=== PATIENT | female | born 1985 | race Caucasian/White ===

== ENCOUNTER 2018-04-27 21:05 | Inpatient (IN) | END 2018-04-29 15:30 | disposition home or self-care (01) | DRG 833 ==

== ENCOUNTER 2018-09-10 03:29 | Inpatient (IN) | payer MEDICAID ==
[~2018-09-10] VITALS: Ht 149.9 cm; Wt 87.3 kg
[~2018-09-10 03:29] MED LIST: NITR-58 PO; PREN1TAB13 PO
[2018-09-10 03:39] VITALS: BP 115/75; PULSE 83; RESP 16
[2018-09-10] MEDS ORDERED: FERR134T PO (04:16)
[2018-09-10] MEDS ORDERED: LACTATED RINGER'S 1,000 ML IV PRN (04:16)
[2018-09-10] MEDS ORDERED: LACTATED RINGER'S 1,000 ML IV SCH (04:16)
--- NOTE | 2018-09-10 04:22 | TRIAGE ---
OB Triage Datetime Report Generated by CPN: 09/10/2018 04:22 Datetime: 09/10/2018 04:10 Stage of : OB Triage Datetime: 09/10/2018 04:05 Stage of : OB Triage Labor Evaluation Frequency: 1.5-3 Monitor Mode: External Duration (sec)2399: 60-90 Quality: Moderate Pattern: Normal: <= 5 Contractions in 10 Minutes Resting Tone [place]: Relaxed Heart Rate FHR Baseline Rate: 140 Monitor Mode: External US FHR Baseline Changes: No Baseline Change Variability: Moderate 6-25 bpm Accelerations: 15X15 Decelerations: None Category: Category I Vaginal Exam Dilatation (cms): 5.0 Effacement (%): 80 Station: -2 Exam By: Jeannie Polanco Membrane Status: Bulging Vaginal Bleeding: Scant Cervix, Consistency: Soft Cervix, Position: Midposition Presentation 'A': Cephalic Datetime: 09/10/2018 03:55 Time of Arrival: 09/10/2018 03:25 EGA: 39.4 Arrived By: Wheelchair Arrived From: Home Chief Complaint: L3 c/o mild ireg ucs Movement: Present Contractions: Irregular Time Contractions Began: 09/10/2018 01:00 Contractions: q20 Rupture of Membranes: Denies Vaginal Bleeding: None Vaginal Discharge: Present Recent Sexual Intercouse: Denies Abdominal Trauma: Not Applicable Patient Complaints: Cramping Time Provider Notified: 09/10/2018 04:10 Provider Notified: Dr Vanegas Initial Plan: EFM,SVE Datetime: 09/10/2018 03:43 Stage of : OB Triage Maternal Assessment Level of Consciousness: Fully Conscious Headache: Denies Blurred Vision: No Nausea/Vomiting: Denies RUQ Epigastric Pain: Denies Facial Edema: None Monitor Mode: External Resting Tone [place]: Relaxed Heart Rate FHR Baseline Rate: 140 Monitor Mode: External US Pain Assessment Pain Scale: 3 Pain Presence: Intermittent Pain Type: Cramping Pain Location: Abdomen
[2018-09-10] MEDS ORDERED: IBUPROFEN 600 MG TAB PO PRN (04:30)
[2018-09-10] MEDS ORDERED: CARBOPROST 250 MCG INJ IM PRN ×2 (04:30→06:00)
[2018-09-10] MEDS ORDERED: OXYTOCIN 30 UNITS/LR 500 ML IV PRN ×2 (04:30→06:00)
[2018-09-10] MEDS ORDERED: METHYLERGONOVINE 0.2 MG INJ IM PRN ×2 (04:30→06:00)
[2018-09-10] MEDS ORDERED: MINERAL OIL LIGHT 10 ML VIAL TOP ONE (04:30)
[2018-09-10] MEDS ORDERED: OXYTOCIN 30 UNITS/LR 500 ML IV SCH ×3 (04:30→05:50)
[2018-09-10] MEDS ORDERED: MISOPROSTOL 200 MCG TAB PR PRN ×2 (04:30→06:00)
[2018-09-10] MEDS ORDERED: LIDOCAINE 1% (MPF) 30 ML INJ INJ PRN (04:30)
[2018-09-10] MEDS ORDERED: BUTORPHANOL 2 MG INJ IV PRN ×2 (04:30)
--- NOTE | 2018-09-10 05:45 | LDN ---
Date/Time of Note Date/Time of Note DATE: 09/10/18 TIME: 05:44 Delivery Summary of a viable baby girl weighing 3165 grams, or 7#, 18" long, and with Apgars of 9/9. Weeks of Gestation 39w 4d Placenta Delivered: Spontaneously Meconium: none Episiotomy: No Perineal laceration: 0 Anesthesia type: None Estimated blood loss: 100 Sponge & Needle done & correct: Yes All needle counts correct: Yes Any foreign bodies felt in the: No (vagina) Delivery Information Sex Infant Sex: female Apgars 1 Minute: 9 5 Minute: 9 Suctioning Nose & mouth suctioned at som: Yes Delee suction performed: No Umbilical Cord Umbilical cord with: 3 Vessels Cord presentations: no nuchal cord Cord Blood was obtained: Yes Mother & Baby Disposition Disposition Mom & Baby to Maternity; Good: Yes Baby to NICU: No ROBERTO FARMER MD September 10, 2018 05:45
[2018-09-10] MEDS: LACTATED RINGER'S 1,000 ML IV* SCH ×2 (05:50→13:50)
--- NOTE | 2018-09-10 05:50 | HP ---
Date/Time of Note Date/Time of Note DATE: 09/10/18 TIME: 05:45 OB - History Hx of Present Free Text/Dictation 33 y.o. A1 with an IUP at 39w 4d came in active labor at 80%/5 cm/- 2/intact/VTX. Estimated Due Date: September 13, 2018 : 6 Para: 4 Spontaneous : 1 Obstetrical Complications: None Medical Complications: None Other Concerns: PMHx: none. PSHx: none except a D and C. NKDA. Past Family/Social History * Past Medical, Surgical, Family and Obstetric Histories reviewed from chart. Blood Type: O+ Rubella: immune RPR/VDRL: Negative GBS Status: Negative HBsAG: Negative OB Admission Exam Vital Signs Vital Signs Vital Signs Date Temp Pulse Resp B/P (MAP) Pulse Ox O2 O2 Flow FiO2 Time Delivery Rate 09/10/18 98.5 83 16 115/75 Room Air 03:39 (88) Physical Exam HEENT: WNL Heart: Rhythm Normal Lungs: Clear Abdomen: WNL Extremities: Normal Reflexes: Normal Cervical Dilatation: 5cm Effacement: Other (80%) Station: -2 Membranes: Intact Heart Rate: 140's Accelerations: Accelerations Present Decelerations: No Decelerations Varibility: Moderate Contractions on Admission: < 5 Minutes Apart Intensity: Moderate Last 72 hours Lab Results CBC & BMP 09/10/18 04:40 OB Assessment/Plan Reason for admission: active labor Plan: Expectant Management ROBERTO FARMER MD September 10, 2018 05:50
[2018-09-10] MEDS ORDERED: LANOLIN HPA 1 PKT TOP PRN (06:00)
[2018-09-10] MEDS: IBUPROFEN 600 MG TAB PO SCH ×4 (06:23→23:21)
[2018-09-10 07:42] VITALS: BP 115/60; PULSE 70; RESP 18
[2018-09-10 09:00] VITALS: BP 108/61; PULSE 84; RESP 17
[2018-09-10 12:00] VITALS: BP 109/57; PULSE 71; RESP 18
[2018-09-10 15:50] VITALS: BP 103/52; PULSE 85; RESP 18
[2018-09-10] MEDS: HYDROCODONE/APAP (5/325) TAB PO PRN (16:46)
[2018-09-10 20:00] VITALS: BP 93/51; PULSE 74; RESP 19
[2018-09-11] VITALS (22 sets, daily range): BP systolic 93–141; BP diastolic 60–76; PULSE 68–84; RESP 14–76
[2018-09-11] MEDS: IBUPROFEN 600 MG TAB PO SCH ×4 (05:46→23:44)
[2018-09-11] MEDS ORDERED: DEXTROSE 5%-LR 1,000 ML IV SCH (13:00)
--- NOTE | 2018-09-11 14:15 | PN ---
Date/Time of Note Date/Time of Note DATE: 09/11/18 TIME: 14:13 OB Subjective Subjective Subjective PPD# 1 Patient is doing well. She denies nausea, vomiting, shortness of breath, chest pain, headache. She has been ambulating without difficulty, tolerating regular diet. Pain is well controlled on current medications OB Objective Objective Objective VS - Last 72 Hours, by Label Date Temp Pulse Resp B/P (MAP) Pulse Ox O2 O2 Flow FiO2 Time Delivery Rate 09/11/18 98.5 76 76 102/65 Room Air 09:00 (77) 09/11/18 98.1 80 19 93/60 (71) Room Air 03:15 09/10/18 98.1 74 19 93/51 (65) Room Air 20:00 09/10/18 98.6 85 18 103/52 Room Air 15:50 (69) 09/10/18 98.6 71 18 109/57 Room Air 12:00 (74) 09/10/18 98.3 84 17 108/61 Room Air 09:00 (77) 09/10/18 98.4 70 18 115/60 Room Air 07:42 (78) 09/10/18 98.5 83 16 115/75 Room Air 03:39 (88) General: AAO X 3, comfortable, NAD, appropriate mood and affect. ABD: +BS. Soft, non-tender. Uterus 2 cm below umbilicus Flank: No CVA tenderness (B/L) LE: Mild edema. No clubbing, cyanosis, thigh or calf tenderness (B/L). [place] 'sign is negative OB Assessment/Plan Other plan: 33 years old -0-1-5 s/p normal vaginal delivery at 39 weeks and 4 days. PPD#1 - AF, VSS - Baby is doing well, at bed side. She is bonding well - Continue care - Contraception methods with R/B/A/FR discussed. She would like to have permanent surgical sterilization. She signed consent form during . Contact operating room for availability RUSTY TRINIDAD September 11, 2018 14:15
[2018-09-11] MEDS ORDERED: MIDAZOLAM 1 MG/ML 2 ML INJ ONE ×2 (20:01→20:40)
[2018-09-11] MEDS ORDERED: ONDANSETRON 4 MG INJ ONE (20:01)
[2018-09-11] MEDS ORDERED: FENTAnyl 50 MCG/ML VIAL ONE (20:01)
--- NOTE | 2018-09-11 20:13 | QN ---
Documentation Comment 33 years old -0-1-5 s/p normal vaginal delivery at 39 weeks and 4 days. PPD#1. She is desiring for permanent surgical sterilization. She signed consent form during . Other contraceptive options including but not limited to IUD discussed in detail with patient. She expressed understanding and still would like to have permanent surgical sterilization. The risk including but not limited to bleeding, infection, injury to other organs (b owel, bladder, ureter, vessels, nerves), blood transfusion, blood transfusion related infection, risk of anesthesia, adhesion, permanent surgical sterilization, increased risk of ectopic if failure of procedure occurs and any other indicated surgery discussed with the patient. She expressed understanding. All of her questions were answered. She signed the informed consent. PHYSICIAN'S VERIFICATION OF INFORMED CONSENT The patient was counseled regarding the procedure, its indications, risks, po tential complications and alternatives and any questions were answered. Consent was obtained. PLANNED PROCEDURE/TREATMENT: Bilateral tubal ligation/bilateral salpingectomy and any other indicated surgery RUSTY TRINIDAD September 11, 2018 20:13
[2018-09-11] MEDS ORDERED: CEFAZOLIN 2 GM/50 ML (PMX) 50 ML IVPB ONE (20:30)
[2018-09-11] MEDS: HYDROCODONE/APAP (5/325) TAB PO PRN (22:03)
--- NOTE | 2018-09-11 22:25 | OPR ---
Date/Time of Note Date/Time of Note DATE: 09/11/18 TIME: 22:16 Operative Report Procedure Date: September 11, 2018 Preoperative Diagnosis 33 years old 6 para 5-0-1-5 status post vaginal delivery on 09/10/2018 desire permanent surgical sterilization Postoperative Diagnosis 33 years old 6 para 5-0-1-5 status post vaginal delivery on 09/10/2018 desire permanent surgical sterilization Operation/Procedure Performed DATE OF OPERATION: Postparum Tubal ligation Surgeon see signature line Programs Assistant Dr. Castro Anesthesia Type: general Anesthesiologist: Jose Sequeira M.D. Estimated Blood Loss: 0 - 10 ml's Transfusion none Specimen Segment of right and left fallopian tube Grafts/Implants none Tubes/Drains None Complications none Pt Condition Post Procedure: stable Disposition: PACU Indications INDICATION AND HISTORY: 33 years old 6 para 5-0-1-5, who had normal vaginal delivery yesterday. She is requesting for permanent surgical sterilization. Other contraceptive options including IUD discussed. She would like to have permanent surgical sterilization. Risks, benefits, alternatives, permanent nature of procedure, failure rate, increased risk of ectopic if procedure failed, bleeding, infection, injury to other organs (bowel, bladder, ureter, vessel, nerve), blood transfusion, blood transfusion-related infection, risk of anesthesia, adhesion, removal of uterus or any other indicated surgery discussed with the patient. She expressed understanding. All of her questions were answered. She signed the informed consent. Procedure Description DESCRIPTION OF OPERATION: The patient was taken to the operating room, where she was identified and procedure verified. The patient was placed in dorsal supine position. General anesthesia was done. The patient was then prepped and draped in the normal sterile fashion.Then a small skin incision was made infraumbilical and carried down to the fascia with a knife. The fascia was incised in the midline and the fascial incision was carried laterally with the Esparza scissors. The peritoneum was grasped with a clamp and was entered by Metzenbaum scissors. Then first left fallopian tube was grasped with [place] clamps. Then a small incision done on meso of fallopian tube by using cautery. Both sides of fallopian tube were suture ligated twice with 0 plain. The segment between was removed with Metzenbaum scissors. There was no bleeding. Same procedure was repeated on the right side. There was no bleeding. Then the peritoneum was reapproximated with the 3-0 Vicryl. The fascia was approximated with 0 Vicryl in a running fashion. The subcutaneous tissue was reapproximated with 3-0 Vicryl. The skin was closed with 4-0 Monocryl. All instruments, sponge and needle counts were correct x3. The patient tolerated the procedure well. She transferred to the recovery room in stable condition. RUSTY TRINIDAD September 11, 2018 22:25
[2018-09-12] MEDS: HYDROCODONE/APAP (5/325) TAB PO PRN (02:06)
[2018-09-12 04:01] VITALS: BP 100/59; PULSE 83; RESP 18
[2018-09-12] MEDS: IBUPROFEN 600 MG TAB PO SCH ×2 (05:33→12:26)
[2018-09-12 08:50] VITALS: BP 88/52; PULSE 84; RESP 18
[2018-09-12] MEDS ORDERED: DIPHTH/TET/ACEL PERTUSS (ADULT) 0.5 ML VIAL IM* ONE (09:00)
--- NOTE | 2018-09-12 17:29 | PN ---
Date/Time of Note Date/Time of Note DATE: 09/12/18 TIME: 17:27 OB Subjective Subjective Subjective Decreased vaginal bleeding. Breast-feeding. Tolerates a regular diet. Ambul ating. Passed flatus. Denies any dizziness, lightheadedness, shortness of breath or chest pain. OB Objective Objective Objective Appearance: Alert and oriented x4 does not appear to be in any acute distress Breast: No engorgement no mastitis no fissure Extremities: No calf tenderness, no click no edema no cord palpable Lungs: Clear to auscultation bilaterally CV: RRR VS - Last 72 Hours, by Label Date Temp Pulse Resp B/P (MAP) Pulse Ox O2 O2 Flow FiO2 Time Delivery Rate 09/12/18 97.5 84 18 88/52 (64) 08:50 09/12/18 97.9 83 18 100/59 Room Air 04:01 (73) 09/11/18 97.7 73 18 123/61 Room Air 23:00 (81) 09/11/18 74 14 121/63 96 Room Air 22:45 (82) 09/11/18 72 17 141/75 97 22:30 (97) 09/11/18 68 17 123/71 97 Room Air 22:25 (88) 09/11/18 72 18 135/68 99 Room Air 22:20 (90) 09/11/18 68 16 136/69 97 Room Air 22:15 (91) 09/11/18 70 17 131/73 97 Room Air 22:10 (92) 09/11/18 72 17 136/66 98 Room Air 22:05 (89) 09/11/18 72 19 132/76 99 Room Air 22:00 (94) 09/11/18 72 18 128/69 98 Room Air 21:55 (88) 09/11/18 70 19 132/70 99 Room Air 21:50 (90) 09/11/18 72 16 133/68 99 Room Air 21:45 (89) 09/11/18 68 17 132/67 100 Room Air 21:40 (88) 09/11/18 72 17 128/69 100 Room Air 21:35 (88) 09/11/18 72 16 124/70 100 Room Air 21:30 (88) 09/11/18 Nasal 2.0 21:29 Cannula 09/11/18 74 16 119/60 100 Nasal 21:25 (79) Cannula 09/11/18 76 18 118/70 100 Nasal 21:20 (86) Cannula 09/11/18 99.3 84 17 114/66 100 Nasal 2.0 21:15 (82) Cannula 09/11/18 99.3 21:15 09/11/18 114/74 21:10 (87) 09/11/18 98.2 74 18 108/69 15:45 (82) 09/11/18 98.5 76 76 102/65 Room Air 09:00 (77) 09/11/18 98.1 80 19 93/60 (71) Room Air 03:15 09/10/18 98.1 74 19 93/51 (65) Room Air 20:00 09/10/18 98.6 85 18 103/52 Room Air 15:50 (69) 09/10/18 98.6 71 18 109/57 Room Air 12:00 (74) 09/10/18 98.3 84 17 108/61 Room Air 09:00 (77) 09/10/18 98.4 70 18 115/60 Room Air 07:42 (78) 09/10/18 98.5 83 16 115/75 Room Air 03:39 (88) OB Assessment/Plan Other Assessment: Status post day #2 Post tubal ligation Postop day #1 Doing well Stable for discharge home. Can be discharged home with a follow-up in 2 weeks and 6 is postop with primary OB office or sooner as needed CRIS HENDERSON MD September 12, 2018 17:29
--- NOTE | 2018-09-12 17:30 | PD.PPDC ---
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 Provider Information Physician Information Cris Henderson MD Diagnosis [id number] Final Diagnosis: Benyd9s s/p , s/p post BTL Condition [id number] Patient Condition: Kwzxc0j Good Diet Jgbhb1Pf Diet: Ptgbl5l Resume Regular Diet Activity/Restrictions [id number] Activity: Mdhad7o Normal Activity Bbhez1Vj Restrictions: Bbmkv1j No Exercising No Lifting No Driving Minimize Walking Minimize Stair-climbing No Sexual Activity Nothing in the Vagina No [place] No Tampons, douche Return to clinic for Ygnyx2Ey RN RADIOLOGY Instructions: Oyyuf6u Fever greater than 101 Chills Worsening abdominal pain Excessive Vaginal Bleeding More than 2 pads per hour Unable to tolerate diet Kqocs9Hd OB Instructions: Dwrro5g Breast Tenderness Depression Blurried Vision Headache [id number] Surgical Instructions: Kmskb1u Incisional Drainage Incisional Redness CRIS HENDERSON MD September 12, 2018 17:30
--- NOTE | 2018-09-12 17:33 | DS ---
Date/Time of Note Date/Time of Note DATE: 09/12/18 TIME: 17:32 Discharge Summary Admission/Discharge Info Admit Date/Time September 10, 2018 at 04:10 Discharge Date/Time September 12, 2018 at 15:30 Discharge Diagnosis s/p S/p Post BTL Consults Noen Procedures s/p S/p Post BTL Hx of Present Illness 33 y.o. A1 with an IUP at 39w 4d came in active labor at 80%/5 cm/- 2/intact/VTX. s/p delivered any complication. She also underwent pos tpartum tubal sterilization That was not complicated as well. On day #2 postop #1 patient was noted to be stable enough to be discharged home. She was ambulating. Tolerated regular diet. Breast-feeding. Vitals were stable. She was afebrile. Advised the patient to have a follow-up at 2 weeks and 6 weeks with OB office or sooner as needed. Hospital Course None complicated Home Meds Reported Medications Pnv95/Ferrous Fumarate/FA ( Vitamins Tablet) 1 Each Tablet, 1 EACH PO, TAB 04/27/18 Discontinued Reported Medications Ferrous Sulfate (Iron) 134 Mg Tablet, 134 MG PO DAILY, TAB 09/10/18 Nitrofurantoin Monohyd Macrocr* (Macrobid*) 100 Mg Capsr, 100 MG PO BID, CAP 04/29/18 Primary Care Provider Care Physician No Primary Time spent on discharge: > 30 minutes CRIS HENDERSON MD September 12, 2018 17:33
--- NOTE | 2018-09-13 16:01 | DELSUM ---
Delivery Summary A-C Datetime Report Generated by CPN: 09/13/2018 16:01 DELIVERY PERSONNEL Radio Station Audio Engineer: Canuto, Elayne MATERNAL INFORMATION Delivery Anesthesia: None Medications in Delivery: LR WITH 30 UNITS OF PITOCIN Delivery QBL (ml): 100 Placenta Cultured: No Maternal Complications: None LABOR SUMMARY EDC: 09/13/2018 00:00 No. Babies in Womb: 1 Attempted: No Labor Anesthesia: None LABOR INFORMATION Reason for Induction: Not Applicable Onset of Labor: 09/10/2018 01:00 Complete Dilatation: 09/10/2018 05:11 Oxytocin: N/A Group B Beta Strep: Negative Antibiotics # of Doses: 0 Steroids Given: None Reason Steroids Not Administered: Not Applicable MEMBRANES Membranes Rupture Method: Spontaneous Rupture of Membranes: 09/10/2018 05:17 Length of Rupture (hr): 0.08 Amniotic Fluid Color: Light Meconium Amniotic Fluid Amount: Moderate Amniotic Fluid Odor: Foul STAGES OF LABOR Stage 1 hr: 4 Stage 1 min: 11 Stage 2 hr: 0 Stage 2 min: 11 Stage 3 hr: 0 Stage 3 min: 35 Total Time in Labor hr: 4 Total Time in Labor min: 57 VAGINAL DELIVERY Episiotomy: None Laceration Extension: N/A Laceration Type: None Laceration Repair: Not Applicable Initial Vag Sponge Count: 10 Final Vag Sponge Count: 10 Initial Vag Sharps Count: 1 Final Vag Sharps Count: 1 Sponge Count Correct: Yes Sharps Count Correct: Yes BABY A INFORMATION Delivery Date/Time: 09/10/2018 05:22 Method of Delivery: Vaginal Born in Route : No : N/A Forceps: N/A Vacuum Extraction: N/A Shoulder Dystocia : No SHOULDER DYSTOCIA BABY A Infant Delivery Date/Time: 09/10/2018 05:22 PRESENTATION/POSITION BABY A Presentation: Cephalic Cephalic Presentation: Vertex Vertex Position: Left Occipital Anterior Breech Presentation: N/A PLACENTA INFORMATION BABY A Placenta Delivery Time : 09/10/2018 05:57 Placenta Method of Delivery: Spontaneous Placenta Status: Delivered SCORES BABY A Heart Rate 1 min: >100 bpm Resp Effort 1 min: Good Cry Reflex Irritability 1 min: Cough/Sneeze/Pulls Away Muscle Tone 1 min: Active Motion Color 1 min: Body [place], Extremit Blue Resuscitation Effort 1 min: Tactile Stimulation SCORE 1 MIN: 9 Heart Rate 5 min: >100 bpm Resp Effort 5 min: Good Cry Reflex Irritability 5 min: Cough/Sneeze/Pulls Away Muscle Tone 5 min: Active Motion Color 5 min: Body [place], Extremit Blue Resuscitation Effort 5 min: Tactile Stimulation SCORE 5 MIN: 9 INFANT INFORMATION BABY A Gestational Age at Delivery: 39.4 Gestational Status: Full Term- 39- 40.6 Weeks Infant Outcome : Liveborn Condition : Stable Infant Sex: Female IDENTIFICATION/MEDS BABY A ID Band Number: [id number] ID Band Location: Right Leg; Left Arm Sensor Applied: Yes Sensor Number: [id number] Sensor Location : Cord Clamp Vitamin K Given : Not Given Erythromycin Given: Not Given WEIGHT/LENGTH BABY A Birthweight (gm): 3165 Infant Weight (lb): 7 Weight (oz): 0 Length (in): 18.00 Infant Length (cm): 45.72 CORD INFORMATION BABY A No. 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
== END 2018-09-12 15:30 | disposition home or self-care (01) | DRG 798 ==
LOC: OBT 03:29 → L-D 03:29 → OBT 04:10 → L-D 04:10 → PP1 08:38
PROVIDERS: ADMIT Obstetrics & Gynecology; ATTEND Obstetrics & Gynecology
PROC: 10E0XZZ Delivery of Products of Conception, External Approach (ICD-10-PCS; principal; 2018-09-10)
PROC: 0UB70ZZ Excision of Bilateral Fallopian Tubes, Open Approach (ICD-10-PCS; 2018-09-11)
DX: O80 Encounter for full-term uncomplicated delivery (principal); Z37.0 Single live birth; Z3A.39 39 weeks gestation of pregnancy; Z30.2 Encounter for sterilization
CPT/HCPCS: 81001; 85025; 85610; 85730; 86592; 86850; 86900; 86901; 87340; 88302; 90715; 99464; G0463; J0690; J2250; J2405; J2590; J3010; J7120; J7121